=== PATIENT | female | born 2000 | race Hispanic/Latino ===

== ENCOUNTER 2018-01-19 06:31 | Emergency (ER) | payer OTHER, SELFPAY ==
[2018-01-19] MEDS ORDERED: TETRACAINE HCL 0.5% 2ML OPTH ONE (07:10)
[2018-01-19] MEDS ORDERED: FLUORESCEIN SODIUM 0.6 MG/WRAP ONE (07:10)
--- NOTE | 2018-01-19 07:36 | ER ---
Nurse's Notes [facility] Name: Lavonne Hyman Age: 17 yrs Sex: Female : 2000 Arrival Date: 01/19/2018 Time: 06:35 Bed 16 Private MD: Diagnosis: Conjunctivitis-Left eye Presentation: 01/19 06:58 Presenting complaint: Patient states: I took out my contacts 24hrs ago. I noticed a jb4 burning pain that lasted most of the day in my left eye. It then progressed to a stabbing pain this morning. Transition of care: patient was not received from another setting of care. Onset of symptoms was January 18, 2018. Risk Assessment: Do you want to hurt yourself or someone else? Patient reports no desire to harm self or others. Initial Sepsis Screen: Does the patient meet any 2 criteria? No. Patient's initial sepsis screen is negative. Does the patient have a suspected source of infection? No. Patient's initial sepsis screen is negative. Care prior to arrival: None. 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 - Social history:: Smoking status: Patient/guardian denies using tobacco, Patient/guardian denies using alcohol. - Ebola Screening: : No symptoms or risks identified at this time. Screenin:00 Abuse screen: Denies threats or abuse. Nutritional screening: No deficits noted. jb4 Tuberculosis screening: No symptoms or risk factors identified. Fall Risk None identified. Assessment: 07:02 General: Appears in no apparent distress. comfortable, Behavior is calm, cooperative, jb4 appropriate for age. Pain: Complains of pain in left eye. Neuro: Level of Consciousness is awake, alert, obeys commands, Oriented to person, place, time, situation, Pupils are reactive to light and accommodate. The right pupil is 5mm while the left pupil is 4mm. Cardiovascular: Patient's skin is warm and dry. Respiratory: Airway is patent Respiratory effort is even, unlabored, Respiratory pattern is regular, symmetrical. GI: No signs and/or symptoms were reported involving the gastrointestinal system. : No signs and/or symptoms were reported regarding the genitourinary system. EENT: Sclera/Cornea are reddened in outer aspect of conjuctiva of left eye and inner aspect of conjunctiva of left eye. Derm: Skin is intact, Skin is pink, warm \T\ dry. Vital Signs: 07:00 BP 131 / 98; Pulse 82; Resp 18; Temp 97.7; Pulse Ox 100% on R/A; Weight 77.11 kg (R); jb4 Height 5 ft. 5 in. (165.10 cm) (R); Pain 4/10; 07:00 Body Mass Index 28.29 (77.11 kg, 165.10 cm) jb4 Visual Acuity: 07:00 Left Eye Visual acuity 20/100, Pupil size 4 mm, Normal, React To Light, Reactive To jb4 Accomodation; Right Eye Visual acuity 20/100, Pupil size 5 mm, Normal, React To Light, Reactive To Accomodation; Without Lenses; Pt reports that she is able to read only down to the second line with both eyes. She reports seeing double in the left eye. ED Course: 06:35 Patient arrived in ED. es 06:43 Ruslan Cantu PA is PHCP. cp 06:43 Fran Ballard MD is Attending Physician. cp 06:53 Kameron Aldrich, RN is Primary Nurse. jb4 06:59 Triage completed. jb4 07:00 Arm band placed on right wrist. jb4 07:00 Patient has correct armband on for positive identification. Bed in low position. Call jb4 light in reach. Side rails up X 1. Pulse ox on. NIBP on. 07:15 Assist provider with eye exam of left eye. using fluorescein stain, Performed by Ruslan GRACE Patient tolerated well. Patient did not have IV access during this emergency room visit. 07:34 Nancy Almanzar MD is Referral Physician. cp Administered Medications: 07:15 Drug: Tetracaine Drops 0.5 % 1 drops Route: Ophthalmic; Site: left eye; em Outcome: 07:35 Discharge ordered by . cp 07:44 Discharged to home ambulatory, with family. em 07:44 Condition: good 07:44 Discharge instructions given to patient, Instructed on discharge instructions, follow up and referral plans. medication usage, Demonstrated understanding of instructions, follow-up care, medications, Prescriptions given X 1. 07:44 Patient left the ED. em Signatures: Larissa Goyal Edgar, DEPOSIT REFUND CLERK DEPOSIT REFUND CLERK em Ruslan Cantu PA PA cp Bryson, James, RN RN jb4 Corrections: (The following items were deleted from the chart) 07:06 07:00 Right Eye Without Lenses,, Pupil Size 4 mm, Normal, React To Light, Reactive To jb4 Accomodation, Left Eye Without Lenses, 20/100, Pupil Size 5 mm, Normal, React To Light, Reactive To Accomodation jb4 07:12 07:00 Right Eye Without Lenses,, Pupil Size 5 mm, Normal, React To Light, Reactive To jb4 Accomodation, Left Eye Without Lenses, 20/100, Pupil Size 4 mm, Normal, React To Light, Reactive To Accomodation jb4
--- NOTE | 2018-01-19 07:36 | EDPHYS ---
Physician Documentation [facility] Name: Lavonne Hyman Age: 17 yrs Sex: Female : 2000 Arrival Date: 01/19/2018 Time: 06:35 Bed 16 Private MD: ED Physician Fran Ballard HPI: 01/19 06:46 This 17 yrs old Female presents to ER via Unassigned with complaints of Eye cp Problem. 06:46 The patient is experiencing pain, redness, to the left eye, caused by an unknown cp mechanism. 06:46 Onset: The symptoms/episode began/occurred yesterday. Duration: the symptoms are cp continuous. 06:46 Associated signs and symptoms: Pertinent negatives: ear ache, fever, headache, runny cp nose. Patient wears soft contacts. Severity of symptoms: in the emergency department the symptoms are worse moderately. 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 - Social history:: Smoking status: Patient/guardian denies using tobacco, Patient/guardian denies using alcohol. - Ebola Screening: : No symptoms or risks identified at this time. ROS: 06:50 Constitutional: Negative for body aches, chills, fever, poor PO intake. cp 06:50 Eyes: Positive for pain, redness, visual disturbance, Negative for matting. cp 06:50 ENT: Negative for drainage from ear(s), ear pain, sore throat, difficulty swallowing, difficulty handling secretions. 06:50 Cardiovascular: Negative for chest pain, palpitations. 06:50 Respiratory: Negative for cough, shortness of breath, wheezing. 06:50 Abdomen/GI: Negative for abdominal pain, nausea, vomiting, and diarrhea. 06:50 Skin: Negative for cellulitis, rash. 06:50 Neuro: Negative for altered mental status, headache, weakness. 06:50 All other systems are negative. Exam: 07:29 Visual Acuity: I have reviewed the nursing documentation. cp 07:29 Head/Face: Normocephalic, atraumatic. 07:29 Constitutional: The patient appears in no acute distress, alert, awake, non-toxic, well developed, well nourished. 07:29 Eyes: Periorbital structures: appear normal, Pupils: equal, round, and reactive to light and accomodation, Extraocular movements: intact throughout, Conjunctiva: injected, in the left eye, mild, Corneas: abrasion, is not appreciated, foreign body, is not appreciated, a fluorescein strip employed to appreciate the findings, Sclera: no appreciated abnormality, Anterior chamber: normal, no hyphema, Lids and lashes: appear normal, bilaterally, Examination of the other eye reveals no obvious gross abnormality. 07:29 ENT: External ear(s): are unremarkable, Ear canal(s): are normal, clear, TM's: dullness, bilaterally, Nose: is normal, Mouth: Lips: moist, Oral mucosa: pink and intact, moist, Posterior pharynx: is normal, airway is patent, no erythema, no exudate. 07:29 Neck: ROM/movement: is normal, is supple, Lymph nodes: no appreciated lymphadenopathy. 07:29 Chest/axilla: Inspection: normal, Palpation: is normal, no crepitus, no tenderness. 07:29 Cardiovascular: Rate: normal, Rhythm: regular. 07:29 Respiratory: the patient does not display signs of respiratory distress, Respirations: normal, Breath sounds: are clear throughout, no decreased breath sounds, no stridor, no wheezing. 07:29 Abdomen/GI: Exam negative for discomfort, distension, guarding, Inspection: abdomen appears normal. 07:29 Skin: cellulitis, is not appreciated, injury, is not appreciated. Vital Signs: 07:00 BP 131 / 98; Pulse 82; Resp 18; Temp 97.7; Pulse Ox 100% on R/A; Weight 77.11 kg (R); jb4 Height 5 ft. 5 in. (165.10 cm) (R); Pain 4/10; 07:00 Body Mass Index 28.29 (77.11 kg, 165.10 cm) jb4 Visual Acuity: 07:00 Left Eye Visual acuity 20/100, Pupil size 4 mm, Normal, React To Light, Reactive To jb4 Accomodation; Right Eye Visual acuity 20/100, Pupil size 5 mm, Normal, React To Light, Reactive To Accomodation; Without Lenses; Pt reports that she is able to read only down to the second line with both eyes. She reports seeing double in the left eye. MDM: 06:45 Patient medically screened. cp 06:45 Differential diagnosis: Corneal abrasion of left eye. Foreign body in left eye. Acute cp iritis of left eye. Infectious conjunctivitis in left eye. 07:33 Data reviewed: vital signs, nurses notes, and as a result, I will discharge patient. cp 07:35 Counseling: I had a detailed discussion with the patient and/or guardian regarding: the cp historical points, exam findings, and any diagnostic results supporting the discharge/admit diagnosis, the need for outpatient follow up, an opthalmologist, to return to the emergency department if symptoms worsen or persist or if there are any questions or concerns that arise at home. 07:35 Response to treatment: the patient's symptoms have mildly improved after treatment, and cp as a result, I will discharge patient. 01/19 06:45 Order name: Visual Acuity; Complete Time: 07:01 01/19 06:45 Order name: Eye Tray; Complete Time: 07:01 01/19 06:45 Order name: Fluoresene Opth strip; Complete Time: 07:01 cp Administered Medications: 07:15 Drug: Tetracaine Drops 0.5 % 1 drops Route: Ophthalmic; Site: left eye; em Disposition: 08:00 Chart complete. cp Disposition: 01/19/18 07:35 Discharged to Home. Impression: Conjunctivitis - Left eye. - Condition is Stable. - Discharge Instructions: Bacterial Conjunctivitis. - Prescriptions for Vigamox 0.5 % Ophthalmic Drops - instill 1 drop by OPHTHALMIC route every 8 hours for 7 days instill drops in left eye as directed; 5 milliliter. - Medication Reconciliation Form, Thank You Letter, Antibiotic Education, Prescription Opioid Use form. - Follow up: Nancy Almanzar MD; When: Tomorrow; Reason: Recheck today's complaints. - Problem is new. - Symptoms have improved. - Notes: No use contact lenses for duration of treatment. When resuming use of contact lenses start with new pair. Recommend f/u with eye DR Almanzar or primary eye doctor tomorrow Signatures: Scott Duncan, [employer]ADAF STRETCHING MACHINE TENDER FRAME em Page, RuslanSANJAY broderick cp, James, RN RN jb4 Corrections: (The following items were deleted from the chart) 07:44 07:35 01/19/2018 07:35 Discharged to Home. Impression: Conjunctivitis - Left eye. em Condition is Stable. Forms are Medication Reconciliation Form, Thank You Letter, Antibiotic Education, Prescription Opioid Use. Follow up: Nancy Almanzar; When: Tomorrow; Reason: Recheck today's complaints. Problem is new. Symptoms have improved. cp
== END 2018-01-19 07:44 | disposition home or self-care (01) ==
LOC: ER 06:31
DX: H10.9 Unspecified conjunctivitis (principal)
CPT/HCPCS: 99284